=== PATIENT | female | born 1955 | race Two or more races ===

== ENCOUNTER 2018-06-23 22:55 | Observation (INO) | payer OTHER ==
[2018-06-23] MEDS ORDERED: ONDANSETRON 4 MG/2 ML VIAL IVP STA (23:41)
[2018-06-23] MEDS ORDERED: SODIUM CHLORIDE 0.9% 500 ML 500 ML IV STA (23:41)
[2018-06-23] MEDS ORDERED: DICYCLOMINE 10 MG/ML 2 ML AMP IM STA (23:42)
[2018-06-23] MEDS ORDERED: MORPHINE SULFATE 4 MG/ML SYRINGE IVP STA (23:42)
[2018-06-24 00:15] LABS: Basophils % (A) 0 %; Eosinophils % (A) 0 %; HCT 46.2 % (34.0-46.0); HGB 15.5 gm/dL (11.4-16.0); Lymphocytes # (A) 0.9 k/uL (1.0-4.8); Lymphocytes % (A) 8 %; MCHC 33.6 g/dL (31.0-37.0); MCV 83.4 fL (80.0-100.0); Mean Platelet Volume 6.3; Monocytes # (A) 0.3 k/uL (0-1.0); Monocytes % (A) 3 %; Neutrophils # (A) 10.2 k/uL (1.3-7.7); Neutrophils % (A) 89 %; Platelet Count 307 k/uL (150-450); RBC 5.54 m/uL (3.80-5.40); RDW 13.2 % (11.5-15.5); WBC 11.5 k/uL (3.8-10.6)
[2018-06-24 00:25] LABS: INR 0.9 (<1.2); Partial Thromboplastin Time 24.8 sec (22.0-30.0); Prothrombin Time 10.2 sec (9.0-12.0)
[2018-06-24 00:37] LABS: Creatine Kinase 86 U/L (30-135)
[2018-06-24 00:41] LABS: Albumin 4.7 g/dL (3.5-5.0); Calcium 10.2 mg/dL (8.4-10.2); Potassium 4.1 mmol/L (3.5-5.1); Total Bilirubin 0.5 mg/dL (0.2-1.3); Total Protein 7.8 g/dL (6.3-8.2)
[2018-06-24 00:50] LABS: Creatine Kinase MB 0.9 ng/mL (0.0-2.4); Troponin I <0.012 ng/mL (0.000-0.034)
--- NOTE | 2018-06-24 01:07 | ED ---
GI Bleed HPI - General Source: patient Mode of arrival: wheelchair Limitations: no limitations <Rosy Orona - Last Filed: 06/24/18 03:39> <Dana Edmondson - Last Filed: 06/30/18 02:46> - General Chief complaint: GI Bleed Stated complaint: Abd pain, blood in stool Time Seen by Provider: 06/23/18 23:13 - History of Present Illness Initial comments: 62-year-old female patient presents to the emergency department today for evaluation of severe mid abdominal pain. Patient states this started suddenly around 2 PM this afternoon. Patient states that she has a constant abdominal cramping however there are waves of worsen pain. Patient states that when the pain comes on it makes her sweaty and nauseous. States that she has had several episodes of diarrhea containing blood, states that she now has only blood passing per rectum. Patient states it is bright red in color. Patient denies ever having similar symptoms in the past. She denies any history of abdominal surgery. She denies any fever or chills. Patient denies any recent rash, shortness breath, chest pain, back pain, numbness, tingling, dizziness, weakness, hematuria, dysuria, urinary urgency, urinary frequency, headache, visual changes, or any other complaints. She denies any use of anticoagulant medications. (Rosy Orona) - Related Data Home Medications Medication Instructions Recorded Confirmed Cholecalciferol [Vitamin D3] 1,000 unit PO DAILY 06/09/17 06/24/18 Previous Rx's Medication Instructions Recorded Acetaminophen Tab [Tylenol Tab] 650 mg PO Q6H PRN #1 tablet 06/27/18 Ciprofloxacin HCl [Cipro] 500 mg PO BID #10 tablet 06/27/18 Pantoprazole Sodium [Protonix] 40 mg PO DAILY #30 tablet. 06/27/18 metroNIDAZOLE [Flagyl] 500 mg PO Q8HR #15 tab 06/27/18 Allergies Allergy/AdvReac Type Severity Reaction Status Date / Time No Known Allergies Allergy Verified 06/23/18 23:33 Review of Systems ROS Other: All systems not noted in ROS Statement are negative. <Rosy Orona - Last Filed: 06/24/18 03:39> ROS Other: All systems not noted in ROS Statement are negative. <Dana Edmondson - Last Filed: 06/30/18 02:46> ROS Statement: Those systems with pertinent positive or pertinent negative responses have been documented in the HPI. Past Medical History Past Medical History: Hyperlipidemia History of Any Multi-Drug Resistant Organisms: None Reported Past Surgical History: Hysterectomy Past Anesthesia/Blood Transfusion Reactions: No Reported Reaction Past Psychological History: Depression Smoking Status: Never smoker Past Alcohol Use History: Daily, Occasional Past Drug Use History: None Reported - Past Family History Father Family Medical History: Cancer Mother Family Medical History: Cancer <Rosy Orona M - Last Filed: 06/24/18 03:39> General Exam Limitations: no limitations General appearance: alert, in no apparent distress, other (This is a well- developed, well-nourished adult female patient in mild distress related to pain. Vital signs upon presentation are temperature 98.1F, pulse 80, respirations 22, blood pressure 167/74, pulse ox 96% on room air.) Eye exam: Present: normal appearance, PERRL, EOMI. Absent: scleral icterus, conjunctival injection, periorbital swelling ENT exam: Present: normal exam, normal oropharynx, mucous membranes moist Respiratory exam: Present: normal lung sounds bilaterally. Absent: respiratory distress, wheezes, rales, rhonchi, stridor Cardiovascular Exam: Present: regular rate, normal rhythm, normal heart sounds. Absent: systolic murmur, diastolic murmur, rubs, gallop, clicks GI/Abdominal exam: Present: soft, tenderness (Generalized abdominal tenderness, especially over the lower abdomen), normal bowel sounds. Absent: distended, guarding, rebound, rigid Neurological exam: Present: alert, oriented X3, CN II-XII intact Psychiatric exam: Present: normal affect, normal mood Skin exam: Present: warm, dry, intact, normal color. Absent: rash <Rosy Orona M - Last Filed: 06/24/18 03:39> Vital Signs 06/23/18 06/24/18 06/24/18 23:07 02:36 05:47 Temperature 98.1 F 98.7 F Pulse Rate 80 74 73 Respiratory 22 16 18 Rate Blood Pressure 167/74 161/89 151/75 O2 Sat by Pulse 96 97 97 Oximetry Medical Decision Making - Lab Data Result diagrams: 06/23/18 23:51 06/23/18 23:51 - Radiology Data Radiology results: report reviewed, image reviewed <Rosy Orona - Last Filed: 06/24/18 03:39> - Lab Data Result diagrams: 06/27/18 10:16 06/27/18 10:16 <Dana Edmondson - Last Filed: 06/30/18 02:46> - Medical Decision Making 62-year-old female patient presents to emergency department today for evaluation of abdominal pain and passage of bright red blood per rectum. Physical examination did reveal lower abdominal tenderness. Labs reviewed and did reveal white blood cell count of 11.5, glucose 145, lactic acid 2.5. CT abdomen and pelvis was obtained and did show thickening of these chronic flexure of the colon and a transverse colon consistent with nonspecific colitis. Given patient's presence of GI bleeding, colitis, and persistent pain will admit to the hospital for IV antibiotics and pain management. Patient is aware of all results and agrees with the plan. (Rosy Orona) I personally saw and examined the patient. I reviewed and agree with the mid- level provider findings including all diagnostic interpretations and treatment plans as written unless otherwise stated. (Dana Edmondson) - Lab Data Lab Results 06/23/18 06/23/18 06/23/18 Range/Units 23:51 23:51 23:51 WBC 11.5 H (3.8-10.6) k/uL RBC 5.54 H (3.80-5.40) m/uL Hgb 15.5 (11.4-16.0) gm/dL Hct 46.2 H (34.0-46.0) % MCV 83.4 (80.0-100.0) fL MCH 28.0 (25.0-35.0) pg MCHC 33.6 (31.0-37.0) g/dL RDW 13.2 (11.5-15.5) % Plt Count 307 (150-450) k/uL Neutrophils % 89 % Lymphocytes % 8 % Monocytes % 3 % Eosinophils % 0 % Basophils % 0 % Neutrophils # 10.2 H (1.3-7.7) k/uL Lymphocytes # 0.9 L (1.0-4.8) k/uL Monocytes # 0.3 (0-1.0) k/uL Eosinophils # 0.0 (0-0.7) k/uL Basophils # 0.0 (0-0.2) k/uL PT (9.0-12.0) sec INR (<1.2) APTT (22.0-30.0) sec Sodium 143 (137-145) mmol/L Potassium 4.1 (3.5-5.1) mmol/L Chloride 106 (98-107) mmol/L Carbon Dioxide 23 (22-30) mmol/L Anion Gap 14 mmol/L BUN 14 (7-17) mg/dL Creatinine 0.87 (0.52-1.04) mg/dL Est GFR (CKD-EPI)AfAm 83 (>60 ml/min/1.73 sqM) Est GFR (CKD-EPI)NonAf 72 (>60 ml/min/1.73 sqM) Glucose 145 H (74-99) mg/dL Lactic Ac Sepsis Rflx Plasma Lactic Acid Franklin (0.7-2.0) mmol/L Calcium 10.2 (8.4-10.2) mg/dL Total Bilirubin 0.5 (0.2-1.3) mg/dL AST 34 (14-36) U/L ALT 54 H (9-52) U/L Alkaline Phosphatase 100 (38-126) U/L Total Creatine Kinase 86 (30-135) U/L CK-MB (CK-2) 0.9 (0.0-2.4) ng/mL CK-MB (CK-2) Rel Index 1.0 Troponin I <0.012 (0.000-0.034) ng/mL Total Protein 7.8 (6.3-8.2) g/dL Albumin 4.7 (3.5-5.0) g/dL Lipase 56 (23-300) U/L 06/23/18 06/23/18 06/24/18 Range/Units 23:51 23:51 00:53 WBC (3.8-10.6) k/uL RBC (3.80-5.40) m/uL Hgb (11.4-16.0) gm/dL Hct (34.0-46.0) % MCV (80.0-100.0) fL MCH (25.0-35.0) pg MCHC (31.0-37.0) g/dL RDW (11.5-15.5) % Plt Count (150-450) k/uL Neutrophils % % Lymphocytes % % Monocytes % % Eosinophils % % Basophils % % Neutrophils # (1.3-7.7) k/uL Lymphocytes # (1.0-4.8) k/uL Monocytes # (0-1.0) k/uL Eosinophils # (0-0.7) k/uL Basophils # (0-0.2) k/uL PT 10.2 (9.0-12.0) sec INR 0.9 (<1.2) APTT 24.8 (22.0-30.0) sec Sodium (137-145) mmol/L Potassium (3.5-5.1) mmol/L Chloride (98-107) mmol/L Carbon Dioxide (22-30) mmol/L Anion Gap mmol/L BUN (7-17) mg/dL Creatinine (0.52-1.04) mg/dL Est GFR (CKD-EPI)AfAm (>60 ml/min/1.73 sqM) Est GFR (CKD-EPI)NonAf (>60 ml/min/1.73 sqM) Glucose (74-99) mg/dL Lactic Ac Sepsis Rflx Y Plasma Lactic Acid Franklin 2.5 H* (0.7-2.0) mmol/L Calcium (8.4-10.2) mg/dL Total Bilirubin (0.2-1.3) mg/dL AST (14-36) U/L ALT (9-52) U/L Alkaline Phosphatase (38-126) U/L Total Creatine Kinase (30-135) U/L CK-MB (CK-2) (0.0-2.4) ng/mL CK-MB (CK-2) Rel Index Troponin I (0.000-0.034) ng/mL Total Protein (6.3-8.2) g/dL Albumin (3.5-5.0) g/dL Lipase (23-300) U/L - Radiology Data CT abdomen and pelvis was obtained with contrast. Report was reviewed in its entirety. Impression by Dr. Martinez shows some thickening of the wall of the transverse colon and splenic flexure of the colon consistent with a nonspecific colitis. Minimal colonic diverticulosis without diverticulitis. Mild fatty infiltration of the liver. (Rosy Orona) Disposition Decision to Admit Reason: Admit from EC Decision Date: 06/24/18 Decision Time: 03:31 <Rosy Orona - Last Filed: 06/24/18 03:39> <Dana Edmondson - Last Filed: 06/30/18 02:46> Clinical Impression: Colitis, GI bleed Disposition: ADMITTED IP TO THIS [facility] Condition: Good
[2018-06-24] MEDS ORDERED: MORPHINE SULFATE 4 MG/ML SYRINGE IVP STA (01:51)
--- NOTE | 2018-06-24 01:52 | CT ---
EXAMINATION TYPE: CT abdomen pelvis w con DATE OF EXAM: 06/24/2018 COMPARISON: None HISTORY: abdominal pain;umbilical region/bloody stools CT DLP: 684.2 mGycm Automated exposure control for dose reduction was used. TECHNIQUE: Helical acquisition of images was performed from the lung bases through the pelvis. CONTRAST: Performed without Oral Contrast and with IV Contrast, patient injected with 100 mL of Isovue 300. FINDINGS: Lung bases are clear. There is no pleural effusion. Heart size is normal. There is no pericardial eff usion. There is probably some fatty infiltration of the liver. Bile ducts are not dilated. Gallbladde r appears normal. Spleen and pancreas appear normal. There is no adrenal mass. Kidneys show satisfactory contrast opacification. There is no hydronephrosi s. Ureters are not dilated. Bladder distends smoothly. There is no retroperitoneal adenopathy. There is no inguinal hernia. There is free fluid in the pelvis that measures 3 cm. There is hysterectomy. A ppendix is not definitely seen. There is no sign of a thickened appendix. I see no intestinal wall th ickening. There are no dilated loops. There are few diverticula in the descending colon. There is mil d thickening of the wall of the splenic flexure of the colon. There is also wall thickening of the di stal transverse colon. Small bowel is fairly normal. There is no mesenteric edema or adenopathy. Lumbar spine is intact. Bony pelvis is intact. IMPRESSION: THERE IS SOME THICKENING OF THE WALL OF THE TRANSVERSE COLON AND SPLENIC FLEXURE OF THE COLON CONSIST ENT WITH A NONSPECIFIC COLITIS. MINIMAL COLONIC DIVERTICULOSIS WITHOUT DIVERTICULITIS. MILD FATTY INF ILTRATION OF THE LIVER.
[2018-06-24] MEDS ORDERED: NALOXONE 0.4 MG/ML 1 ML VIAL IV PRN (03:28)
[2018-06-24] MEDS ORDERED: PANTOPRAZOLE 40 MG/10 ML VIAL IVP STA (03:29)
[2018-06-24] MEDS ORDERED: metroNIDAZOLE-NS PMX 500 MG in SALINE 1 100ML.BAG IVPB ONE (04:00)
[2018-06-24] MEDS: SODIUM CHLORIDE 0.9% 1,000 ML IV SCH ×2 (05:43→16:31)
[2018-06-24] MEDS: metroNIDAZOLE-NS PMX 500 MG in SALINE 1 100ML.BAG IVPB SCH ×3 (06:24→16:33)
[2018-06-24] MEDS: MORPHINE SULFATE 4 MG/ML SYRINGE IV PRN ×3 (06:37→16:30)
[2018-06-24] MEDS: LEVOFLOXACIN 500MG-D5W PMX 500 MG in DEXTROSE/WATER 1 100ML.BAG IVPB SCH (11:53)
[2018-06-24] MEDS ORDERED: TEMAZEPAM 15 MG CAP PO PRN (14:39)
[2018-06-24] MEDS ORDERED: HYDROcodone/APAP 5-325MG 1 EACH TAB PO PRN (14:39)
--- NOTE | 2018-06-24 19:14 | HP ---
HISTORY AND PHYSICAL CHIEF COMPLAINT: GI bleed. HISTORY OF PRESENT ILLNESS: This 62-year-old woman with a past medical history of hyperlipidemia, and depression being followed by Dr. Ag in the outpatient setting was noted to have abdominal pain yesterday. The patient has severe abdominal pain which is mid part of . Subsequently patient had multiple bouts of diarrhea since 2:00 pm yesterday. Subsequently, diarrhea turned to bloody stools and patient had bright red blood in the rectum and the patient admitted for further evaluation and treatment. There is no history of fever, rigors or chills. No history of headache, loss of consciousness or seizures. No history of any unusual food intake or travel at this time. Plasma lactic acid is elevated. WBC 11.[address] scan of the abdomen and pelvis was also done in the ER which showed diffuse thickening of the transverse colon, splenic flexure consistent with nonspecific colitis, mild colonic diverticulosis. The patient admitted to the hospital for further evaluation and treatment. There is no history of any fever , rigors or chills. No history of headache, loss of consciousness or seizures. PAST MEDICAL HISTORY: History of hyperlipidemia, history of depression. MEDICATIONS: Prior to admission include vitamin D3 1000 daily. ALLERGIES: None. FAMILY HISTORY: History of cancer in the family. SOCIAL HISTORY: Occasional alcohol intake. smoking. REVIEW OF SYSTEMS: ENT: No diminished hearing or vision. CARDIOVASCULAR: No angina or palpitations. RESPIRATIONS: No cough. No hemoptysis. GI: As mentioned earlier. no dysuria. CENTRAL NERVOUS SYSTEM: No numbness or weakness. ALLERGY/IMMUNOLOGY: No asthma or hayfever. MUSCULOSKELETAL: As mentioned earlier. HEMATOLOGY/ONCOLOGY: No history of anemia. ENDOCRINE: No diabetes or hypothyroidism. CONSTITUTIONAL: As mentioned earlier. Dermatology: Negative. Rheumatology: Negative. Psychiatry: As mentioned earlier. PHYSICAL EXAMINATION: GENERAL: The patient is alert and oriented times three. VITAL SIGNS: Pulse 71, blood pressure 177/90, respiration 18, temperature 98.9, pulse ox 94 percent on room air. HEENT: Conjunctivae normal. NECK: No jugular venous distention. CARDIOVASCULAR: S1, S2 muffled. RESPIRATORY: Breath sounds diminished in the bases. No rhonchi. No crackles. ABDOMEN: Soft. Mild diffuse tenderness present. No guarding. No rigidity. No mass palpable. Bowel sounds present. No ascites. Legs: No edema. No swelling. NERVOUS SYSTEM: Higher functions as mentioned earlier. Moves all 4 limbs. No focal motor or sensory deficits. Lymphatics: No lymph nodes palpable in the neck, axillae or groin. SKIN: No ulcer, rash or bleeding. LABS: WBC 11.2, hemoglobin 15.5, sodium 143, potassium 4.1, glucose 145, plasma lactic acid 2.5 and ALT is 54. ASSESSMENT: 1. Acute lower gastrointestinal bleeding with possibly secondary to acute nonspecific colitis involving the transverse colon and splenic flexure of the colon. 2. Increased WBC. 3. Increased elevated plasma lactic acid, improved. 4. History of hyperlipidemia. 5. History of hysterectomy. 6. History of depression. RECOMMENDATIONS AND DISCUSSION: In this 62-year-old woman who presented with multiple medical issues, at this time, I recommend to continue current management. Continue symptomatic treatment. We will initiate broad-spectrum IV antibiotics. Pain medications. Proton pump inhibitors. DVT prophylaxis. I would also recommend consultation with Gastroenterology. Repeat labs. Symptomatic treatment. Prognosis guarded because of multiple complex medical issues. Further recommendations to follow. Depending upon the progress of the patient, patient also will require colonoscopy for further evaluation also. Patient had a colonoscopy apparently a year ago which showed according to the records sigmoid diverticulosis with no evidence of any diverticulitis, stricture, polyps or cancer. A copy of dictation being forwarded to Dr. Ag who is the primary physician. MMITZELL / MICHELLEN: [id number] / MTDD
[2018-06-24] MEDS: ALPRAZolam 0.25 MG TAB PO PRN (20:08)
[2018-06-25] MEDS: metroNIDAZOLE-NS PMX 500 MG in SALINE 1 100ML.BAG IVPB SCH ×4 (00:15→17:35)
[2018-06-25] MEDS: MORPHINE SULFATE 4 MG/ML SYRINGE IV PRN (01:12)
[2018-06-25] MEDS: ONDANSETRON 4 MG/2 ML VIAL IVP PRN ×2 (01:12→19:46)
[2018-06-25] MEDS: SODIUM CHLORIDE 0.9% 1,000 ML IV SCH (05:41)
[2018-06-25] MEDS: PANTOPRAZOLE 40 MG/10 ML VIAL IVP SCH ×2 (05:41→07:42)
[2018-06-25 10:03] LABS: ALT 37 U/L (9-52); AST 25 U/L (14-36); Albumin 3.8 g/dL (3.5-5.0); Alkaline Phosphatase 75 U/L (38-126); Anion Gap 10 mmol/L; Blood Urea Nitrogen 10 mg/dL (7-17); Calcium 8.8 mg/dL (8.4-10.2); Carbon Dioxide 24 mmol/L (22-30); Chloride 108 mmol/L (98-107); Glucose 79 mg/dL (74-99); Potassium 3.8 mmol/L (3.5-5.1); Sodium 142 mmol/L (137-145); Total Bilirubin 0.7 mg/dL (0.2-1.3); Total Protein 6.5 g/dL (6.3-8.2)
[2018-06-25 10:23] LABS: Basophils % (A) 0 %; Eosinophils % (A) 0 %; HCT 40.7 % (34.0-46.0); HGB 13.4 gm/dL (11.4-16.0); Lymphocytes # (A) 1.5 k/uL (1.0-4.8); Lymphocytes % (A) 17 %; MCH 28.3 pg (25.0-35.0); MCHC 32.9 g/dL (31.0-37.0); MCV 85.9 fL (80.0-100.0); Mean Platelet Volume 6.5; Monocytes # (A) 0.3 k/uL (0-1.0); Monocytes % (A) 4 %; Neutrophils # (A) 6.6 k/uL (1.3-7.7); Neutrophils % (A) 78 %; Platelet Count 257 k/uL (150-450); RBC 4.73 m/uL (3.80-5.40); RDW 13.3 % (11.5-15.5); WBC 8.5 k/uL (3.8-10.6)
[2018-06-25] MEDS: LEVOFLOXACIN 500MG-D5W PMX 500 MG in DEXTROSE/WATER 1 100ML.BAG IVPB SCH (11:18)
--- NOTE | 2018-06-25 17:09 | P.CONS ---
History of Present Illness - Reason for Consult Consult date: 06/24/18 GI bleeding. - History of Present Illness The patient is a 62-year-old female who presented to the emergency room with history of abdominal pain, diarrhea and rectal bleeding and was admitted for further management. The patient was in her usual health and started to have sudden onset of crampy abdominal pains involving the mid and lower abdomen the afternoon prior to admission. She felt nauseated and was sweaty but did not check her temperature. She subsequently had multiple episodes of diarrhea that turned bloody prompting her to come to the emergency room for evaluation. In the emergency room, she was noted to have leukocytosis and lactic acidosis and CT of the abdomen showed thickening of the transverse and descending colon consistent with nonspecific colitis. There was evidence of diverticulosis as well. The patient is well known to me and I performed a screening colonoscopy last year and the only finding was sigmoid diverticulosis. The patient denied any recent travel. No other members of the household had similar symptoms no recent use of antibiotics or any change in medications. This morning, she reported feeling much improved. Her abdominal bloating and pain has significantly improved and she has had no further bowel movements. Review of Systems Constitutional: Denied fever, chills or unintentional weight loss Neurologic: Denies any headaches, double vision or other sessile multiple changes Cardiopulmonary: Denied chest pains, shortness of breath or palpitations. Has history of hyperlipidemia Gastrointestinal: See present illness above Genitourinary: No hematuria, dysuria or frequency Musculoskeletal: No joint swelling or pain Endocrine: No polydipsia or polyuria Hematologic: No history of anemia or bleeding tendency Skin: No rashes Psychiatric: History of depression Past Medical History Past Medical History: Hyperlipidemia History of Any Multi-Drug Resistant Organisms: None Reported Past Surgical History: Hysterectomy Past Anesthesia/Blood Transfusion Reactions: No Reported Reaction Past Psychological History: Depression Additional Psychological History / Comment(s): NOT ON ANY MEDS Smoking Status: Never smoker Past Alcohol Use History: Daily, Occasional Additional Past Alcohol Use History / Comment(s): 1-2 GLASSES WINE 3 TIMES A WEEK AND 3 RUM AND COKES A WEEK Past Drug Use History: None Reported - Past Family History Father Family Medical History: Cancer Mother Family Medical History: Cancer Medications and Allergies Home Medications Medication Instructions Recorded Confirmed Type Cholecalciferol [Vitamin D3] 1,000 unit PO DAILY 06/09/17 06/24/18 History Allergies Allergy/AdvReac Type Severity Reaction Status Date / Time No Known Allergies Allergy Verified 06/23/18 23:33 Physical Exam Vitals: Vital Signs Temp Pulse Pulse Resp BP BP Pulse Ox 06/24/18 07:00 98.9 F 71 18 177/90 95 06/24/18 05:47 98.7 F 73 18 151/75 97 06/24/18 02:36 74 16 161/89 97 06/23/18 23:07 98.1 F 80 22 167/74 96 Intake and Output 06/24/18 06/24/18 06/24/18 06:59 14:59 22:59 Intake Total 300 Balance 300 Intake: Oral 300 Other: Weight 68.039 kg General: Appears stated age, very pleasant, in no acute distress Head and neck: Normocephalic and atraumatic. Conjunctivae pink and sclerae not icteric. Mucous membranes moist and pink. No masses in the neck or tracheal shifts Lungs: Clear to auscultation with no dullness to percussion Heart: Regular, no abnormal sounds, murmurs, gallops of trips Abdomen: Soft, no masses. Tenderness on deep palpation in the lower abdomen more so on the left side. No guarding or rebound. Bowel sounds present Extremities: No clubbing, cyanosis or edema Neurologic: Alert and oriented 3. Cranial nerves grossly intact. No gross sensory or motor abnormalities Results CBC & Chem 7: 06/25/18 09:09 06/25/18 09:09 Labs: Abnormal Lab Results - Last 24 Hours (Table) 06/23/18 06/23/18 06/23/18 Range/Units 23:51 23:51 23:51 WBC 11.5 H (3.8-10.6) k/uL RBC 5.54 H (3.80-5.40) m/uL Hct 46.2 H (34.0-46.0) % Neutrophils # 10.2 H (1.3-7.7) k/uL Lymphocytes # 0.9 L (1.0-4.8) k/uL Glucose 145 H (74-99) mg/dL Plasma Lactic Acid Franklin 2.5 H* (0.7-2.0) mmol/L ALT 54 H (9-52) U/L Assessment and Plan Assessment: Colitis and rectal bleeding with no evidence of significant drop in blood counts. The likely possibility includes infectious or self-limited colitis less likely ischemic colitis. The patient appears to be improving significantly with your current management that included fluid resuscitation and antibiotics. Plan: I agree with your current management. The patient is tolerating clear liquid diet which would continue daily and consider allowing for fluids and low- residue tomorrow based on her condition. Since I performed a colonoscopy last year, I suggested that there would be no need to repeat his endoscopy at this time especially if she continues to improve. I will discuss with you and follow with you with interest.
--- NOTE | 2018-06-25 21:05 | PN ---
PROGRESS NOTE DATE OF SERVICE: 06/25/2018 This 62-year-old woman who was admitted with GI bleed and possible colitis is being closely monitored at this time. Infectious or self limited colitis is being considered. Dr. Granados is following the patient closely. No chest pain. No palpitations. No fever. The hemoglobin is 13.4, stable at this time. EXAM: Alert and oriented x3. The pulse is 68, blood pressure 143/80, respirations 16, temperature 98.2, pulse ox 98 percent on room air. HEENT: Conjunctivae normal. NECK: No jugular venous distention. CARDIOVASCULAR: S1, S2 muffled. RESPIRATORY: Breath sounds diminished in the bases. No rhonchi. No crackles. ABDOMEN is soft. Mild diffuse discomfort on palpation. No guarding. No rigidity. No mass palpable. LEGS are no edema, no swelling. CENTRAL NERVOUS SYSTEM: No focal deficits. LABS: CBC normal. Sodium 140, potassium 3.8. ASSESSMENT: 1. Acute lower gastrointestinal bleeding with possibly secondary to acute nonspecific colitis involving the transverse colon, splenic flexure of the colon, possibly infectious versus ischemic. 2. Increased WBC. 3. Increased elevated plasma lactic acid improved. 4. History of hyperlipidemia. 5. History of hysterectomy. 6. History of depression. DISCUSSION AND RECOMMENDATIONS: Recommend to continue medications, monitoring and symptomatic treatment. Otherwise, at this time, the patient recommended to continue antibiotics. Gastroenterology evaluation. Advance diet. If the symptoms recur or persist then colonoscopy might be needed. Further recommendations to follow. MMODL / IJN: [id number] /
[2018-06-26] MEDS: SODIUM CHLORIDE 0.9% 1,000 ML IV SCH ×3 (00:53→23:09)
[2018-06-26] MEDS: metroNIDAZOLE-NS PMX 500 MG in SALINE 1 100ML.BAG IVPB SCH ×5 (00:54→23:08)
[2018-06-26] MEDS: ALPRAZolam 0.25 MG TAB PO PRN (00:54)
[2018-06-26] MEDS: PANTOPRAZOLE 40 MG/10 ML VIAL IVP SCH (07:32)
[2018-06-26 10:53] LABS: Basophils % (A) 0 %; Eosinophils # (A) 0.1 k/uL (0-0.7); Eosinophils % (A) 1 %; HCT 42.3 % (34.0-46.0); HGB 13.5 gm/dL (11.4-16.0); Lymphocytes # (A) 1.5 k/uL (1.0-4.8); Lymphocytes % (A) 17 %; MCH 27.4 pg (25.0-35.0); MCV 85.7 fL (80.0-100.0); Mean Platelet Volume 6.4; Monocytes # (A) 0.4 k/uL (0-1.0); Monocytes % (A) 4 %; Neutrophils # (A) 6.7 k/uL (1.3-7.7); Neutrophils % (A) 77 %; Platelet Count 300 k/uL (150-450); RBC 4.94 m/uL (3.80-5.40); RDW 13.1 % (11.5-15.5); WBC 8.8 k/uL (3.8-10.6)
[2018-06-26 11:00] LABS: Calcium 9.1 mg/dL (8.4-10.2)
[2018-06-26 11:01] LABS: Potassium 3.4 mmol/L (3.5-5.1)
[2018-06-26] MEDS: LEVOFLOXACIN 500MG-D5W PMX 500 MG in DEXTROSE/WATER 1 100ML.BAG IVPB SCH (12:29)
[2018-06-26 16:15] VITALS: BMI 26.5
--- NOTE | 2018-06-26 20:43 | PN ---
PROGRESS NOTE DATE OF SERVICE: 06/26/2018. INTERVAL HISTORY: This 62-year-old woman was admitted with features of colitis and GI bleed. She is being closely monitored. Appetite is poor. No chest pain. No palpitations. No fever. Patient is on IV antibiotics and bronchodilators. EXAM: Alert and oriented x3. Pulse is 67, blood pressure 140/81, respirations 16, temperature 98.4, pulse ox 97% on room air. HEENT: Conjunctivae normal. Oral mucosa normal. NECK: Neck is no jugular venous distention. No lymph node enlargement. CARDIOVASCULAR: S1 and S2 muffled. RESPIRATORY: Breath sounds diminished at the bases. No rhonchi, no crackles. ABDOMEN: Soft, nontender. No mass. EXTREMITIES: Legs edema. [employer]: No focal deficits. LABS: WBC 8.8, hemoglobin 13.4, sodium 143, potassium 3.4. ASSESSMENT: 1. Acute lower gastrointestinal bleeding, possibly secondary to acute nonspecific colitis involving the transverse colon and splenic flexure of the colon, possibly infectious or ischemic colitis. 2. Increased WBC. 3. Increased plasma lactic acid, improved. 4. History of hyperlipidemia. 5. History of congestive heart failure. 6. History of depression. RECOMMENDATIONS: Recommend to continue current medications, monitoring and symptomatic treatment. Otherwise at this time, continue the IV fluids. Continue empiric antibiotics. Otherwise, closely follow with Gastroenterology. Potassium elevation. Repeat labs. Guarded prognosis because of multiple complex medical issues. Further recommendations to follow. MMODL / IJN: [id number] /
--- NOTE | 2018-06-26 22:39 | P.PN ---
Subjective Progress Note Date: 06/26/18 Principal diagnosis: Abdominal pain, diarrhea, rectal bleeding Patient reports feeling much better. She has been tolerating her diet with improved abdominal pain. No further rectal bleeding. Objective - Vital Signs Vital signs: Vital Signs Temp 99.0 F 06/26/18 14:50 Pulse 71 06/26/18 14:50 Resp 16 06/26/18 14:50 BP 138/88 06/26/18 14:50 Pulse Ox 95 06/26/18 14:50 Intake & Output 06/26/18 06/26/18 06/27/18 06:59 18:59 06:59 Intake Total 1550 700 Balance 1550 700 Weight 68.039 kg Intake: Intake, IV Titration 950 Amount Sodium Chloride 0.9% 1, 750 000 ml @ 75 mls/hr IV . [id number] MARIELLE Rx#:[id number] metroNIDAZOLE-NS PMX 500 200 mg In Saline 1 100ml.bag @ 100 mls/hr IVPB Q6HR MARIELLE Rx#:[id number] Oral 600 700 Other: # Voids 3 1 - Exam On physical examination, patient appears comfortable in no apparent distress. HEAD: Normocephalic, atraumatic. EYES: No scleral icterus. No conjunctival injection. MOUTH: No lesions, tongue midline. NECK: Trachea midline, no gross abnormalities. CHEST: Clear to auscultation with no wheezing or rhonchi appreciated. HEART: Regular rate and rhythm. ABDOMEN: Soft, obese. Bowel sounds are positive. No organomegaly. No guarding or rigidity. EXTREMITIES: No pedal edema. SKIN: No rashes, no jaundice. NEUROLOGIC: Alert and oriented x3. No focal deficits. - Labs CBC & Chem 7: 06/26/18 09:43 06/26/18 09:43 Labs: Abnormal Lab Results - Last 24 Hours (Table) 06/26/18 Range/Units 09:43 Potassium 3.4 L (3.5-5.1) mmol/L Chloride 109 H (98-107) mmol/L Glucose 67 L (74-99) mg/dL Assessment and Plan (1) Colitis Narrative/Plan: Nonspecific colitis seen on CT imaging in the transverse colon of unknown etiology. Patient presenting with complaints of abdominal pain, diarrhea and blood per rectum. Differential is broad including infectious colitis, ischemia with inflammatory process much less likely given the acuity of her symptoms. Patient is improving with antibiotic therapy. Current Visit: Yes Status: Acute Code(s): K52.9 - NONINFECTIVE GASTROENTERITIS AND COLITIS, UNSPECIFIED SNOMED Code(s): 56213146 (2) Diverticulosis Current Visit: Yes Status: Acute Code(s): K57.90 - DVRTCLOS OF INTEST, PART UNSP, W/O PERF OR ABSCESS W/O BLEED SNOMED Code(s): 02577099 (3) GI bleed Current Visit: Yes Status: Acute Code(s): K92.2 - GASTROINTESTINAL HEMORRHAGE, UNSPECIFIED SNOMED Code(s): 25771621 Plan: Supportive care Okay for low residual diet, recommend avoiding fibrous foods in the short-term and increasing to a high-fiber diet after 2 weeks Monitor hemoglobin and transfuse as needed Continue broad-spectrum antibiotic coverage for 10-14 days No plan for endoscopy at this time given recent colonoscopy in the outpatient setting Follow-up with GI service in 2 weeks Okay for discharge from gastroenterology went otherwise medically stable Thank you for allowing us to participate in the care of this patient, at this time we will standby please call us back with any questions or concerns
[2018-06-26 23:31] VITALS: RESP 18
[2018-06-27] MEDS ORDERED: PNEUMOCOCCAL VACC-PNEUMOVAX 23 25 MCG/0.5 ML VIAL IM ONE (00:31)
[2018-06-27] MEDS ORDERED: INFLUENZA VACCINE (6 MOS+) 60 MCG/0.5 ML SYRINGE IM ONE (00:31)
[2018-06-27] MEDS ORDERED: Potassium Replacement Protocol 1 EACH MISC MISCELLANE PRN ×2 (00:35→09:32)
[2018-06-27] MEDS: metroNIDAZOLE-NS PMX 500 MG in SALINE 1 100ML.BAG IVPB SCH ×2 (05:12→12:07)
[2018-06-27] MEDS: POTASSIUM CHLORIDE ER 20 MEQ TAB.ER PO SCH ×2 (05:13→05:14)
[2018-06-27 06:28] VITALS: BP 151/90; PULSE 67; TEMP 98.6
[2018-06-27] MEDS: ONDANSETRON 4 MG/2 ML VIAL IVP PRN (08:30)
[2018-06-27] MEDS: PANTOPRAZOLE 40 MG/10 ML VIAL IVP SCH (08:30)
[2018-06-27] MEDS ORDERED: ACETAMINOPHEN TAB 325 MG TAB PO PRN (09:49)
[2018-06-27 10:38] LABS: Basophils % (A) 0 %; Eosinophils # (A) 0.1 k/uL (0-0.7); Eosinophils % (A) 1 %; HCT 42.6 % (34.0-46.0); HGB 13.6 gm/dL (11.4-16.0); Lymphocytes # (A) 1.5 k/uL (1.0-4.8); Lymphocytes % (A) 19 %; MCH 26.9 pg (25.0-35.0); MCHC 31.9 g/dL (31.0-37.0); MCV 84.3 fL (80.0-100.0); Monocytes # (A) 0.3 k/uL (0-1.0); Monocytes % (A) 4 %; Neutrophils # (A) 6.1 k/uL (1.3-7.7); Neutrophils % (A) 75 %; Platelet Count 291 k/uL (150-450); RBC 5.05 m/uL (3.80-5.40); RDW 13.2 % (11.5-15.5); WBC 8.1 k/uL (3.8-10.6)
[2018-06-27 10:44] LABS: Calcium 9.1 mg/dL (8.4-10.2); Potassium 4.1 mmol/L (3.5-5.1)
[2018-06-27] MEDS: SODIUM CHLORIDE 0.9% 1,000 ML IV SCH (12:06)
[2018-06-27] MEDS: LEVOFLOXACIN 500MG-D5W PMX 500 MG in DEXTROSE/WATER 1 100ML.BAG IVPB SCH (12:06)
--- NOTE | 2018-06-27 19:02 | DS ---
DISCHARGE SUMMARY DATE OF SERVICE: 06/27/2018 FINAL DIAGNOSES: 1. Acute lower gastrointestinal bleeding, possibly secondary to acute nonspecific colitis involving the transverse colon, splenic flexure of the colon, possibly infectious or ischemic colitis. 2. Increased white count. 3. Increased plasma lactic acid, improved. 4. History of hyperlipidemia. 5. History of congestive heart failure. 6. History of depression. DISCHARGE DISPOSITION: The patient will be discharged in stable condition with guarded prognosis. HISTORY OF PRESENT ILLNESS: This 62-year-old woman was admitted with abdominal discomfort and lower GI bleeding. CT scan showed colitis, as mentioned earlier. Patient was treated with antibiotics empirically. Gastroenterology saw the patient, recommended outpatient followup. On exam, vital signs are stable. CARDIOVASCULAR SYSTEM: S1, S2 muffled. ABDOMEN: Soft, non-tender. NERVOUS SYSTEM: No focal deficit. Currently hemoglobin is 13.6, stable. DISCHARGE ADVICE AND MEDICATIONS: 1. Diet is cardiac. 2. Activity limited until followup. 3. Follow up with Dr. Ag in 2-3 days. 4. Follow up with Dr. Delacruz in 2-3 days. 5. Vitamin D3 1000 daily. 6. Tylenol 650 q.6 p.r.n. 7. Cipro 500 mg p.o. b.i.d. for 5 days. 8. Flagyl 500 mg q.8 for 5 days. 9. Protonix 40 mg p.o. daily. MMODL / IJN: [id number] /
== END 2018-06-27 13:16 | disposition home or self-care (01) ==
LOC: EC 22:55 → SUPCPDRO 22:55 → 4MS4W 06-24 03:43 → INTOOBSV 06-24 03:43 → UNDODISIN 06-27 13:16
PROVIDERS: ADMIT Hospitalist; ATTEND Hospitalist
DX: K92.2 Gastrointestinal hemorrhage, unspecified (principal); A09 Infectious gastroenteritis and colitis, unspecified; K55.9 Vascular disorder of intestine, unspecified; E87.2 Acidosis; E78.5 Hyperlipidemia, unspecified; F32.9 Major depressive disorder, single episode, unspecified; D72.829 Elevated white blood cell count, unspecified; K57.30 Diverticulosis of large intestine without perforation or abscess without bleeding; E66.9 Obesity, unspecified; Z68.26 Body mass index [BMI] 26.0-26.9, adult; Z79.899 Other long term (current) drug therapy; Z90.710 Acquired absence of both cervix and uterus; Z80.9 Family history of malignant neoplasm, unspecified; Z23 Encounter for immunization
CPT/HCPCS: 96376 ×5; 96361 ×3; 96366 ×4; 96367; 96365; 96372; 96375 ×2; 99285; 36415; 80053 ×2; 80048 ×2; 82550; 82553; 83605; 83690; 83735; 84484; 85025 ×4; 85610; 85730; 74177; 90732; 90686; G0378 ×4; G0008; G0009; J2270 ×3; J0500; J2405 ×3; J1956 ×3; J0696; C9113 ×4; Q9967; 96374